=== PATIENT | female | born 2000 | race Caucasian/White ===

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

== ENCOUNTER 2019-02-09 00:59 | Emergency (ER) | payer MEDICAID ==
[~2019-02-09] VITALS: Ht 157.5 cm; Wt 73.5 kg
[2019-02-09 01:38] VITALS: Ht 157.5 cm; Wt 73.5 kg
[2019-02-09 02:36] VITALS: BP 110/66
== END 2019-02-09 02:36 | disposition home or self-care (01) ==
LOC: ED 00:59
DX: O99.512 Diseases of the respiratory system complicating pregnancy, second trimester (principal); J06.9 Acute upper respiratory infection, unspecified; Z3A.20 20 weeks gestation of pregnancy